=== PATIENT | female | born 1990 | race Two or more races ===

== ENCOUNTER 2022-12-19 08:43 | Outpatient (CLI) | payer OTHER | END 2022-12-19 08:45 | disposition home or self-care (01) | LOC: SONOGRAMA 08:43 | PROVIDERS: ATTEND Pathology Anatomic Pathology & Clinical Pathology | DX: D34 Benign neoplasm of thyroid gland (principal); E04.9 Nontoxic goiter, unspecified; E07.9 Disorder of thyroid, unspecified; E04.1 Nontoxic single thyroid nodule ==

== ENCOUNTER 2024-06-28 07:14 | Emergency (ER) | payer OTHER ==
[~2024-06-28] VITALS: Ht 177.8 cm; Wt 112.0 kg
[2024-06-28] MEDS ORDERED: KETOROLAC TROMETHAMINE 30 MG VIAL IM STA (08:40)
[2024-06-28] MEDS ORDERED: CEFTRIAXONE SODIUM 1,000 MG VIAL IM STA (08:40)
[2024-06-28] MEDS ORDERED: KETOROLAC TROMETHAMINE 60 MG VIAL IM ONE (08:56)
[2024-06-28] MEDS ORDERED: CEFTRIAXONE SODIUM 1,000 MG VIAL ONE (08:57)
[2024-06-28] MEDS ORDERED: LIDOCAINE HCL 1% 10ML VIAL ONE (08:57)
[2024-06-28 09:19] LABS: MEAN CELL VOLUME 89.9 fL (80.00-100.00); MEAN CORPUSCULAR HEMOGLOBIN 30.8 pg (27.00-32.0); MEAN CORPUSCULAR HGB CONC 34.3 g/dl (32.0-36.0); PLATELET COUNT 265 K/uL (150-450); RED BLOOD COUNT 4.23 M/uL (4.00-6.00); RED CELL DISTRIBUTION WIDTH 14.8 % (11.5-14.5)
== END 2024-06-28 10:58 | disposition home or self-care (01) ==
LOC: ER 07:14
PROVIDERS: General Practice
DX: J10.1 Influenza due to other identified influenza virus with other respiratory manifestations (principal); Z91.013 Allergy to seafood; Z20.822 Contact with and (suspected) exposure to COVID-19

== ENCOUNTER 2024-10-31 07:30 | Outpatient (CLI) | payer OTHER | END 2024-10-31 07:33 | disposition home or self-care (01) | LOC: SONOGRAMA 07:30 | PROVIDERS: ATTEND Pathology Anatomic Pathology & Clinical Pathology | DX: D34 Benign neoplasm of thyroid gland (principal); E07.89 Other specified disorders of thyroid; E04.1 Nontoxic single thyroid nodule ==